=== PATIENT | male | born 1945 | race Caucasian/White ===

== ENCOUNTER 2020-12-21 12:53 | Inpatient (IN) ==
[2020-12-21 14:45] LABS: ABS Eosinophils 0.2 10^3/ul (0-0.6); ABS Lymphocytes 1.7 10^3/ul (1.0-4.8); ABS Monocytes 0.9 10^3/ul (0-0.8); ABS Neutrophils 7.8 10^3/ul (1.5-7.7); Eosinophil % 2.2 %; Hematocrit 46 % (42-52); Hemoglobin 15.5 g/dL (14.0-18.0); Lymphocyte % 15.9 %; Mean Corpuscular HGB Conc 34 g/dL (31-36); Mean Corpuscular Hemoglobin 31 pg (27-31); Mean Corpuscular Volume 90 fL (80-94); Mean Platelet Volume 7.9 fL (7.4-10.4); Nucleated Red Blood Cells % 0.1; Platelet Count 188 10^3/uL (150-450); Red Blood Count 5.08 10^6 /uL (4.18-5.48); Red Cell Distribution Width 15 % (10-15); White Blood Count 10.7 10^3/uL (3.5-10.8)
[2020-12-21] MEDS ORDERED: Vancomycin 1,500 MG in NS 0.9% 250 ml 250 ML IVPB ONE (15:12)
[2020-12-21] MEDS ORDERED: Piperacillin/Tazobac ADVAN 3.375 GM in NS 0.9% 100 ml BAG 100 ML IV ONE ×2 (15:12→16:01)
[2020-12-21 15:29] LABS: Albumin 4.1 g/dL (3.2-5.2); Albumin/Globulin Ratio 1.4 (1-3); C Reactive Protein 27.43 mg/L (<8.01); Calcium 9.1 mg/dL (8.6-10.3); EGFR African American 100.6 (>60); EGFR Non-African American 83.1 (>60); Total Bilirubin 1.2 mg/dL (0.2-1.0); Total Protein 7.1 g/dL (6.4-8.9)
[2020-12-21] MEDS ORDERED: Lactated Ringers 1000 ml BAG 1,000 ML IV SCH (16:00)
[2020-12-21 16:42] LABS: Erythrocyte Sed Rate 7 mm/Hr (0-19)
[2020-12-21] MEDS ORDERED: Zosyn per Pharmacy NOTE FOLLOW UP SCH (17:00)
[2020-12-21] MEDS: NS 0.9% 1,000 ML IV SCH (22:00)
[2020-12-21] MEDS: ZOSYN 3.375 GM Q8H per EXTENDED INFUSION IV SCH (22:00)
[2020-12-22] MEDS: ZOSYN 3.375 GM Q8H per EXTENDED INFUSION IV SCH ×3 (06:17→22:10)
[2020-12-22] MEDS ORDERED: Propofol 10 MG/ML 20 ML BTL ONE (07:34)
[2020-12-22] MEDS ORDERED: Lidocaine 2% PF 5 ML VIAL ONE (07:34)
[2020-12-22] MEDS ORDERED: Bupivacaine 0.25% SDV 30 ML ONE (07:36)
[2020-12-22] MEDS ORDERED: Desflurane 240 ML INH ONE (07:42)
[2020-12-22] MEDS ORDERED: Ondansetron 4 mg VIAL 2 MG/ML 2 ml VIAL IV PRN (08:30)
[2020-12-22] MEDS ORDERED: Naloxone 0.4 mg VIAL 0.4 mg/ml 1 ml VIAL IV PRN (08:30)
[2020-12-22] MEDS: HYDROmorphone 1 MG/1 ML SYRINGE IV PRN ×5 (09:13→09:34)
[2020-12-22] MEDS ORDERED: HYDROmorphone 1 MG/1 ML SYRINGE ONE (09:13)
[2020-12-22] MEDS: oxyCODONE/Acetamin 5/325 mg TAB PO PRN (09:19)
[2020-12-22] MEDS ORDERED: oxyCODONE/Acetamin 5/325 mg TAB ONE (09:19)
[2020-12-22] MEDS: NS 0.9% 1,000 ML IV SCH (18:53)
[2020-12-23] MEDS: NS 0.9% 1,000 ML IV SCH (04:45)
[2020-12-23] MEDS: ZOSYN 3.375 GM Q8H per EXTENDED INFUSION IV SCH ×3 (06:19→21:35)
[2020-12-23] MEDS: oxyCODONE/Acetamin 5/325 mg TAB PO PRN (17:45)
[2020-12-24] MEDS: ZOSYN 3.375 GM Q8H per EXTENDED INFUSION IV SCH ×2 (05:52→13:59)
[2020-12-24] MEDS: oxyCODONE/Acetamin 5/325 mg TAB PO PRN ×2 (05:56→19:55)
[2020-12-24] MEDS ORDERED: Magnesium Hydroxide LIQ 30 ML UDC PO PRN (11:44)
[2020-12-24] MEDS ORDERED: Senna TAB 8.6 mg TAB PO PRN (11:44)
[2020-12-24] MEDS: cefTRIAXone 2 GM ADDV.VIAL 2 GM in NS 0.9% 100 ml BAG 100 ML IV SCH (17:28)
[2020-12-25 05:02] LABS: ABS Basophils 0.1 10^3/ul (0-0.2); ABS Eosinophils 0.4 10^3/ul (0-0.6); ABS Monocytes 0.8 10^3/ul (0-0.8); ABS Neutrophils 4.9 10^3/ul (1.5-7.7); Eosinophil % 4.6 %; Hematocrit 44 % (42-52); Hemoglobin 15.1 g/dL (14.0-18.0); Lymphocyte % 24.6 %; Mean Corpuscular HGB Conc 34 g/dL (31-36); Mean Corpuscular Hemoglobin 31 pg (27-31); Mean Corpuscular Volume 90 fL (80-94); Mean Platelet Volume 8.1 fL (7.4-10.4); Platelet Count 171 10^3/uL (150-450); Red Cell Distribution Width 15 % (10-15); White Blood Count 8.1 10^3/uL (3.5-10.8)
[2020-12-25] MEDS: oxyCODONE/Acetamin 5/325 mg TAB PO PRN ×2 (07:17→15:45)
[2020-12-25] MEDS ORDERED: Polyethylene Glycol 3350 17 GM PACKET PO SCH (09:00)
[2020-12-25 11:57] VITALS: BP 108/65
[2020-12-25] MEDS: cefTRIAXone 2 GM ADDV.VIAL 2 GM in NS 0.9% 100 ml BAG 100 ML IV SCH (15:10)
== END 2020-12-25 16:35 | disposition home or self-care (01) | DRG 514 ==
LOC: ED 12:53 → SSU 15:54
PROVIDERS: ADMIT Orthopaedic Surgery Hand Surgery; ATTEND Orthopaedic Surgery Hand Surgery

== ENCOUNTER 2020-12-29 11:46 | Inpatient (IN) ==
[2020-12-29] MEDS ORDERED: metroNIDAZOLE IV 500 MG/100ML 500 MG/100 ML BAG IVPB ONE (13:21)
[2020-12-29 14:20] LABS: ABS Basophils 0.1 10^3/ul (0-0.2); ABS Eosinophils 0.2 10^3/ul (0-0.6); ABS Lymphocytes 1.2 10^3/ul (1.0-4.8); ABS Monocytes 0.6 10^3/ul (0-0.8); ABS Neutrophils 3.8 10^3/ul (1.5-7.7); Eosinophil % 3.7 %; Hematocrit 43 % (42-52); Hemoglobin 14.6 g/dL (14.0-18.0); Lymphocyte % 20.2 %; Mean Corpuscular HGB Conc 34 g/dL (31-36); Mean Corpuscular Hemoglobin 30 pg (27-31); Mean Corpuscular Volume 90 fL (80-94); Mean Platelet Volume 8.2 fL (7.4-10.4); Platelet Count 161 10^3/uL (150-450); Red Blood Count 4.81 10^6 /uL (4.18-5.48); Red Cell Distribution Width 14 % (10-15)
[2020-12-29 14:36] LABS: Albumin 3.9 g/dL (3.2-5.2); Albumin/Globulin Ratio 1.4 (1-3); C Reactive Protein 9.52 mg/L (<8.01); Calcium 8.8 mg/dL (8.6-10.3); EGFR African American 115.4 (>60); EGFR Non-African American 95.4 (>60); Globulin 2.8 g/dL (2-4); Potassium 3.9 mmol/L (3.5-5.0); Total Bilirubin 0.6 mg/dL (0.2-1.0); Total Protein 6.7 g/dL (6.4-8.9)
[2020-12-29 14:56] LABS: INR 1.2 (0.82-1.09)
[2020-12-29 15:58] LABS: Erythrocyte Sed Rate 11 mm/Hr (0-19)
[2020-12-29 17:52] LABS: Urine Appearance Clear; Urine Bilirubin Negative (Negative); Urine Blood Negative (Negative); Urine Color Yellow; Urine Glucose Negative (Negative); Urine Ketones Negative (Negative); Urine Nitrite Negative (Negative); Urine Protein Negative (Negative); Urine Specific Gravity 1.008 (1.002-1.030); Urine Urobilinogen Negative (Negative)
[2020-12-29] MEDS: metroNIDAZOLE IV 500 MG/100ML 500 MG/100 ML BAG IVPB SCH (21:12)
[2020-12-29] MEDS: Latanoprost 0.005% 2.5 ml BTL BOTH EYES SCH (22:25)
[2020-12-30] MEDS: oxyCODONE/Acetamin 5/325 mg TAB PO PRN ×3 (00:01→20:45)
[2020-12-30 05:40] LABS: Hematocrit 40 % (42-52); Hemoglobin 13.5 g/dL (14.0-18.0); Mean Corpuscular HGB Conc 34 g/dL (31-36); Mean Corpuscular Hemoglobin 30 pg (27-31); Mean Corpuscular Volume 90 fL (80-94); Mean Platelet Volume 8.4 fL (7.4-10.4); Platelet Count 150 10^3/uL (150-450); Red Blood Count 4.44 10^6 /uL (4.18-5.48); Red Cell Distribution Width 14 % (10-15)
[2020-12-30] MEDS: metroNIDAZOLE IV 500 MG/100ML 500 MG/100 ML BAG IVPB SCH ×3 (05:48→21:40)
[2020-12-30 05:51] LABS: Calcium 8.6 mg/dL (8.6-10.3); EGFR African American 115.4 (>60); EGFR Non-African American 95.4 (>60); Potassium 3.7 mmol/L (3.5-5.0)
[2020-12-30] MEDS ORDERED: fentaNYL 100 mcg/2 ml 50 MCG/ML VIAL ONE (08:05)
[2020-12-30] MEDS ORDERED: Midazolam 5 mg/5 ml VIAL 1 mg/ml 5 ml VIAL (5 mg) ONE (08:05)
[2020-12-30] MEDS ORDERED: Propofol 10 MG/ML 20 ML BTL ONE ×2 (08:06)
[2020-12-30] MEDS ORDERED: Lidocaine 2% PF 5 ML VIAL ONE (08:06)
[2020-12-30] MEDS ORDERED: ceFAZolin 1 GM ADVAN 1 GM ADDV.VIAL IVPB ONE (08:45)
[2020-12-30] MEDS: Cefepime 2 GM in Dextrose 2 GM/50 ML BAG IV SCH ×2 (13:38→20:47)
[2020-12-30] MEDS ORDERED: cefTRIAXone 2 GM ADDV.VIAL 2 GM in NS 0.9% 100 ml BAG 100 ML IV SCH (15:00)
[2020-12-30] MEDS: Latanoprost 0.005% 2.5 ml BTL BOTH EYES SCH (20:50)
[2020-12-31] MEDS: metroNIDAZOLE IV 500 MG/100ML 500 MG/100 ML BAG IVPB SCH ×3 (05:23→22:13)
[2020-12-31 05:37] LABS: ABS Basophils 0.1 10^3/ul (0-0.2); ABS Eosinophils 0.2 10^3/ul (0-0.6); ABS Lymphocytes 1.1 10^3/ul (1.0-4.8); ABS Monocytes 0.7 10^3/ul (0-0.8); ABS Neutrophils 3.9 10^3/ul (1.5-7.7); Eosinophil % 4.1 %; Hematocrit 38 % (42-52); Hemoglobin 12.7 g/dL (14.0-18.0); Lymphocyte % 17.9 %; Mean Corpuscular HGB Conc 34 g/dL (31-36); Mean Corpuscular Hemoglobin 30 pg (27-31); Mean Corpuscular Volume 90 fL (80-94); Mean Platelet Volume 8.1 fL (7.4-10.4); Platelet Count 135 10^3/uL (150-450); Red Cell Distribution Width 15 % (10-15)
[2020-12-31 05:54] LABS: Calcium 8.3 mg/dL (8.6-10.3); EGFR African American 87.9 (>60); EGFR Non-African American 72.6 (>60)
[2020-12-31] MEDS ORDERED: Furosemide 40 mg/4 ml IV VIAL IV SLOW PU SCH (09:00)
[2020-12-31] MEDS: Enoxaparin 40 MG/0.4 ML SYR SUBCUT SCH (09:48)
[2020-12-31] MEDS: cefTRIAXone 2 GM ADDV.VIAL 2 GM in NS 0.9% 100 ml BAG 100 ML IV SCH (09:49)
[2020-12-31] MEDS: Latanoprost 0.005% 2.5 ml BTL BOTH EYES SCH (20:06)
[2021-01-01] MEDS: metroNIDAZOLE IV 500 MG/100ML 500 MG/100 ML BAG IVPB SCH ×3 (05:29→13:47)
[2021-01-01] MEDS: cefTRIAXone 2 GM ADDV.VIAL 2 GM in NS 0.9% 100 ml BAG 100 ML IV SCH (08:35)
[2021-01-01] MEDS: Enoxaparin 40 MG/0.4 ML SYR SUBCUT SCH (08:35)
[2021-01-01] MEDS: oxyCODONE/Acetamin 5/325 mg TAB PO PRN (21:57)
[2021-01-01] MEDS: Latanoprost 0.005% 2.5 ml BTL BOTH EYES SCH (21:58)
[2021-01-02] MEDS ORDERED: Ondansetron ODT 4 mg TAB 4 MG TAB SL PRN (07:57)
[2021-01-02] MEDS: cefTRIAXone 2 GM ADDV.VIAL 2 GM in NS 0.9% 100 ml BAG 100 ML IV SCH (08:19)
[2021-01-02] MEDS: Enoxaparin 40 MG/0.4 ML SYR SUBCUT SCH (09:25)
[2021-01-02] MEDS: Latanoprost 0.005% 2.5 ml BTL BOTH EYES SCH (23:12)
[2021-01-03] MEDS: cefTRIAXone 2 GM ADDV.VIAL 2 GM in NS 0.9% 100 ml BAG 100 ML IV SCH (08:44)
[2021-01-03] MEDS: Enoxaparin 40 MG/0.4 ML SYR SUBCUT SCH (08:57)
[2021-01-03 15:15] VITALS: BP 124/72
== END 2021-01-03 17:00 | disposition home or self-care (01) | DRG 514 ==
LOC: ED 11:46 → SSU 11:46
PROVIDERS: ADMIT Hospitalist; ATTEND Internal Medicine